=== PATIENT | female | born 1975 | race Two or more races ===

== ENCOUNTER → 2016-08-16 | Outpatient (CLI) | payer BC ==
[2016-08-16 20:44] LABS: Basophils % (A) 0 %; CH 23.1; CHCM 30.4; Eosinophils # (A) 0.1 k/uL (0-0.7); Eosinophils % (A) 2 %; HCT 37.4 % (34.0-46.0); HDW 2.64; HGB 11.3 gm/dL (11.4-16.0); Hypochromasia Moderate; Luc # (Auto) 0.16; Luc % (Auto) 2; Lymphocytes # (A) 2.4 k/uL (1.0-4.8); Lymphocytes % (A) 30 %; MCHC 30.2 g/dL (31.0-37.0); MCV 76.3 fL (80.0-100.0); Mean Platelet Volume 8.7; Microcytosis Slight; Monocytes # (A) 0.4 k/uL (0-1.0); Monocytes % (A) 5 %; Neutrophils # (A) 4.8 k/uL (1.3-7.7); Neutrophils % (A) 61 %; RDW 15.2 % (11.5-15.5); WBC 7.9 k/uL (3.8-10.6); WBC (Perox) 8.25
[2016-08-16 20:46] LABS: ALT 34 U/L (9-52); AST 22 U/L (14-36); Alkaline Phosphatase 76 U/L (38-126); Anion Gap 12 mmol/L; Blood Urea Nitrogen 11 mg/dL (7-17); Calcium 9.5 mg/dL (8.4-10.2); Carbon Dioxide 25 mmol/L (22-30); Chloride 101 mmol/L (98-107); Cholesterol 144 mg/dL (<200); Glucose 123 mg/dL (74-99); HDL Cholesterol 50 mg/dL (40-60); Non-African American GFR(MDRD) >60 (>60 ml/min/1.73 sqM); Potassium 3.3 mmol/L (3.5-5.1); Sodium 138 mmol/L (137-145); Total Bilirubin 0.3 mg/dL (0.2-1.3); Total Protein 7.7 g/dL (6.3-8.2); Triglycerides 82 mg/dL (<150)
== END ==
LOC: MMGSC 16:43
PROVIDERS: ATTEND Family Medicine
DX: I10 Essential (primary) hypertension (principal)
CPT/HCPCS: 36415; 80053; 80061; 84439; 84443; 85025

== ENCOUNTER → 2016-11-06 | Outpatient (CLI) | payer BC | END | disposition home or self-care (01) | LOC: LABWHC1 11:36 | PROVIDERS: ATTEND Internal Medicine Endocrinology, Diabetes & Metabolism | DX: R23.2 Flushing (principal); E03.8 Other specified hypothyroidism; I15.9 Secondary hypertension, unspecified | CPT/HCPCS: 36415; 82088; 83001; 84244; 84439; 84443 ==

== ENCOUNTER 2016-11-19 21:08 | Emergency (ER) | payer BC ==
[2016-11-19 21:18] VITALS: BP 130/66; PULSE 80; RESP 18; TEMP 98.3
--- NOTE | 2016-11-19 21:37 | ED ---
Lower Extremity Injury HPI - General Chief Complaint: Extremity Injury, Lower Stated Complaint: R Foot Ankle Injury Time Seen by Provider: 11/19/16 21:18 Source: patient, RN notes reviewed Mode of arrival: wheelchair Limitations: no limitations - History of Present Illness Initial Comments: 41-year-old female presents emergency Department chief complaint right foot injury. Patient states that she stepped on a kids block toy and twisted her foot. Patient complains of of right mid to lateral foot pain. Patient had no prior injuries. She states is swollen and very painful when she ambulates. - Related Data Home Medications Medication Instructions Recorded Confirmed Ferrous Sulfate [Feosol] 325 mg PO DAILY 11/19/16 11/19/16 Losartan/Hydrochlorothiazide 1 tab PO DAILY 11/19/16 11/19/16 [Losartan-Hctz 100-12.5 mg Tab] Montelukast [Singulair] 10 mg PO HS 11/19/16 11/19/16 Omeprazole Magnesium [Prilosec OTC] 20 mg PO DAILY 11/19/16 11/19/16 Potassium 99 mg PO DAILY 11/19/16 11/19/16 Allergies Allergy/AdvReac Type Severity Reaction Status Date / Time sulfamethoxazole Allergy Anaphylaxis Verified 11/19/16 21:17 [From Bactrim] trimethoprim [From Bactrim] Allergy Anaphylaxis Verified 11/19/16 21:17 Review of Systems ROS Statement: Those systems with pertinent positive or pertinent negative responses have been documented in the HPI. ROS Other: All systems not noted in ROS Statement are negative. Past Medical History Past Medical History: GERD/Reflux, Hypertension, Thyroid Disorder History of Any Multi-Drug Resistant Organisms: None Reported Past Surgical History: Cholecystectomy, Tubal Ligation Additional Past Surgical History / Comment(s): Breast implants. Tubal reveresal Past Anesthesia/Blood Transfusion Reactions: No Reported Reaction Past Psychological History: No Psychological Hx Reported Smoking Status: Never smoker Past Alcohol Use History: None Reported Past Drug Use History: None Reported - Past Family History Father Family Medical History: Hypertension General Exam Limitations: no limitations General appearance: alert, in no apparent distress Respiratory exam: Present: normal lung sounds bilaterally. Absent: respiratory distress, wheezes, rales, rhonchi, stridor Cardiovascular Exam: Present: regular rate, normal rhythm, normal heart sounds. Absent: systolic murmur, diastolic murmur, rubs, gallop, clicks Extremities exam: Present: other (Right foot there is tenderness to lateral portion of the foot with moderate swelling no ecchymosis neurovascular intact) Course Vital Signs 11/19/16 21:16 Temperature 98.3 F Pulse Rate 80 Respiratory 18 Rate Blood Pressure 130/66 O2 Sat by Pulse 100 Oximetry Procedures - Orthopedic Splinting/Casting Injury #1 Side: right Lower Extremity Injury Location: foot Lower Extremity Immobilizer: posterior splint (Short leg neurovascular intact before and after procedure) Medical Decision Making - Medical Decision Making 41-year-old female presented emergency from for right foot injury. Patient is a fracture through the fifth metatarsal. Patient will be splinted follow-up with orthopedics. Disposition Clinical Impression: Fracture of fifth metatarsal bone Disposition: HOME SELF-CARE Condition: Stable Instructions: Foot Fracture in Adults (ED) Additional Instructions: Please return to the Emergency Department if symptoms worsen or any other concerns. Referrals: Arnold Hawley MD [Primary Care Provider] - 1-2 days Jose Liu DO [Doctor of Osteopathic Medicine] - 1-2 days
--- NOTE | 2016-11-19 21:42 | XR ---
EXAMINATION TYPE: XR foot complete RT DATE OF EXAM: 11/19/2016 CLINICAL HISTORY: pain TECHNIQUE: Frontal, lateral and oblique images of the right foot are obtained. COMPARISON: None. FINDINGS: Virtually nondisplaced fracture at the base of the fifth metatarsal. The joint spaces appe ar within normal limits. The overlying soft tissue appears unremarkable. IMPRESSION: Virtually nondisplaced fracture at the base of the fifth metatarsal. ICD 10 closed FRACTURE, INITIAL EVALUATION
[2016-11-19] MEDS ORDERED: IBUPROFEN 600 MG TAB PO STA (21:44)
== END 2016-11-19 21:58 | disposition home or self-care (01) ==
LOC: EC 21:08
DX: S92.354A Nondisplaced fracture of fifth metatarsal bone, right foot, initial encounter for closed fracture (principal); I10 Essential (primary) hypertension; K21.9 Gastro-esophageal reflux disease without esophagitis; Z88.2 Allergy status to sulfonamides; Z79.899 Other long term (current) drug therapy; X50.1XXA Overexertion from prolonged static or awkward postures, initial encounter
CPT/HCPCS: 29515; 99283

== ENCOUNTER → 2017-01-13 | Outpatient (CLI) | payer BC ==
[2017-01-13 16:47] LABS: Anion Gap 11 mmol/L; Blood Urea Nitrogen 12 mg/dL (7-17); Calcium 9.4 mg/dL (8.4-10.2); Carbon Dioxide 27 mmol/L (22-30); Chloride 101 mmol/L (98-107); Glucose 103 mg/dL (74-99); Non-African American GFR(MDRD) >60 (>60 ml/min/1.73 sqM); Potassium 3.7 mmol/L (3.5-5.1); Sodium 139 mmol/L (137-145)
--- NOTE | 2017-01-15 08:22 | MM ---
Reason for exam: screening (asymptomatic). Last mammogram was performed 1 year and 9 months ago. History: Saline implants in both breasts, 2009. Physical Findings: A clinical breast exam by your physician is recommended on an annual basis and results should be correlated with mammographic findings. MG Screening Mammo Implant/CAD Bilateral CC, MLO, and ID view(s) were taken. Prior study comparison: March 31, 2015, bilateral MG screening mammo implant/CAD. February 11, 2012, CAD bilateral diagnostic mammogram. The breast tissue is heterogeneously dense. This may lower the sensitivity of mammography. Bilateral saline implants. No significant changes when compared with prior studies. ASSESSMENT: Negative, BI-RAD 1 RECOMMENDATION: Routine screening mammogram of both breasts in 1 year.
== END | disposition home or self-care (01) ==
LOC: RADMAMWWP 15:36
PROVIDERS: ATTEND Internal Medicine Interventional Cardiology
DX: Z12.31 Encounter for screening mammogram for malignant neoplasm of breast (principal); E87.6 Hypokalemia; Z98.82 Breast implant status
CPT/HCPCS: 80048; 36415; G0202

== ENCOUNTER → 2018-01-15 | Outpatient (CLI) | payer OTHER ==
[2018-01-15 13:14] LABS: Basophils % (A) 0 %; Eosinophils # (A) 0.1 k/uL (0-0.7); Eosinophils % (A) 1 %; HCT 41.9 % (34.0-46.0); HGB 13.8 gm/dL (11.4-16.0); Lymphocytes # (A) 1.7 k/uL (1.0-4.8); Lymphocytes % (A) 21 %; MCH 27.7 pg (25.0-35.0); MCV 84.2 fL (80.0-100.0); Mean Platelet Volume 7.3; Monocytes # (A) 0.4 k/uL (0-1.0); Monocytes % (A) 4 %; Neutrophils # (A) 5.8 k/uL (1.3-7.7); Neutrophils % (A) 72 %; Platelet Count 266 k/uL (150-450); RBC 4.98 m/uL (3.80-5.40); RDW 13.7 % (11.5-15.5); WBC 8.1 k/uL (3.8-10.6)
== END | disposition home or self-care (01) ==
LOC: LABPAT 12:17
PROVIDERS: ATTEND Obstetrics & Gynecology
DX: Z01.818 Encounter for other preprocedural examination (principal); Z01.812 Encounter for preprocedural laboratory examination; I10 Essential (primary) hypertension; N92.0 Excessive and frequent menstruation with regular cycle; N84.0 Polyp of corpus uteri
CPT/HCPCS: 36415; 85025; 93005

== ENCOUNTER 2018-01-19 09:03 | Day surgery (SDC) | payer OTHER ==
--- NOTE | 2018-01-15 14:51 | HP ---
HISTORY AND PHYSICAL This is a 42-year-old female, 4, para 3-1-0-4, who presents with a history of abnormal uterine bleeding. Endometrial biopsy in the office reveals benign tissue with fragments of a benign polyp. Recent FSH level of 5.3, hemoglobin 13.7, thyroid function studies within normal limits. After thorough discussion, patient presents for hysteroscopy, polypectomy, and NovaSure endometrial ablation. All risks, benefits, and alternatives of the surgery have been discussed in detail. Second opinion is offered and declined. REVIEW OF SYSTEMS: Otherwise negative. PAST MEDICAL HISTORY: Significant for history of anemia, chlamydia, benign heart murmur, hypertension, hypothyroidism, and thyroid disease. PAST SURGICAL HISTORY: Breast augmentation bilaterally 2009, section in 2014, cholecystectomy in 1990, tubal ligation 1999, with tubal reversal attempted in 2010. CURRENT MEDICATIONS: 1. Iron 325 mg tablets when on menses. 2. Losartan hydrochlorothiazide 50/12.5 mg tablets once daily. 3. Omeprazole 20 mg before meals. 4. Singular 10 mg once daily in the evening. ALLERGIES: Include ASPIRIN, to which she reports difficulty breathing, BACTRIM, and BACTRIM DS to which she reports hives, swelling and shortness of breath, KEFLEX to which she reports hives and a rash, LATEX to which she reports a local reaction, SULFA and SULFONAMIDE DRUGS to which she reports a rash, hives and difficulty breathing. FAMILY HISTORY: Significant for hypertension in her father, diabetes in a grandmother. REPRODUCTIVE HISTORY: Three vaginal deliveries, 1 section. Fimbriectomy with attempted tubal ligation reversal, unsuccessful. SOCIAL HISTORY: Patient does drink alcoholic beverages 1-4 per week, she is , she currently smokes 1 pack per day tobacco. She denies illicit drug use. PHYSICAL EXAM: This is a pleasant white female who is 4 foot 11 inches, 125 pounds, BMI 25, blood pressure 112/80. HEENT exam reveals good dentition, no thyromegaly, no cervical lymphadenopathy. Chest is clear to auscultation in all urrutia anteriorly and posteriorly. Cardiac exam reveals regular rate and rhythm with no murmur, click, or rub. The breasts are bilaterally symmetric to inspection, implants are well seated and symmetric, no obvious skin changes, nipple discharge or adenopathy. Abdomen is soft and nontender, no obvious organosplenomegaly. Extremities reveal good range of motion, good peripheral pulses, no edema. On pelvic exam, external genitalia is well estrogenized and atraumatic. Cervix is multiparous. Uterus is anteverted, anteflexed, mobile, smooth, small, midline. Adnexa are negative bilaterally to palpation. Rectal exam reveals good sphincter tone, negative stool. IMPRESSION: Menorrhagia, endometrial polyp noted per endometrial biopsy. Patient choosing NovaSure endometrial ablation. PLAN: We will proceed with hysteroscopy, polypectomy, and NovaSure endometrial ablation under general anesthetic at [facility]. The risks, benefits, and alternatives of this procedure have been discussed in detail. Second opinion is offered and declined. Patient understands that she will not be able to achieve after this procedure; however, it is not formal contraception. She has had previous bilateral fimbriectomies. All questions answered, patient aware of our discussion. Please also note that the ACOG pamphlet on this procedure have been given to the patient and reviewed thoroughly. MMODL / IJN: [id number] /
[2018-01-16 10:14] VITALS: BMI 25.4
[~2018-01-19 09:03] MED LIST: CLINDAMYCIN 900 MG in DEXTROSE 5% IN WATER 50 ML IVPB ONE; DEXAMETHASONE SOD PHOSPHATE 10 MG/ML 1 ML VIAL IV ONE; GENTAMICIN 280 MG in SODIUM CHLORIDE 0.9% 100 ML IVPB ONE; LACTATED RINGERS 1,000 ML IV SCH; MIDAZOLAM 2 MG/2 ML VIAL IV PRN; ONDANSETRON 4 MG/2 ML VIAL IVP ONE; SCOPOLAMINE 1.5MG/72HR PATCH TRANSDERM ONE; ceFAZolin IN SWFI 2 GM/20 ML SYRINGE IVP ONE
[2018-01-19] MEDS ORDERED: LIDOCAINE 1% 20 ML VIAL (10MG/ML) FOR IV START INTRADERMA ONE (09:45)
[2018-01-19 09:48] VITALS: TEMP 98.3
[2018-01-19] MEDS ORDERED: KETOROLAC 30 MG/ML 1 ML VIAL ONE (11:32)
[2018-01-19] MEDS ORDERED: fentaNYL (PF) 50 MCG/ML 2 ML AMP ONE (11:32)
[2018-01-19] MEDS ORDERED: MIDAZOLAM 2 MG/2 ML VIAL ONE (11:32)
[2018-01-19] MEDS ORDERED: PROPOFOL 10 MG/ML 20 ML VIAL IV ONE (11:32)
[2018-01-19] MEDS ORDERED: LIDOCAINE 1% INJ 10MG/ML (20 ML MDV) ONE (11:32)
--- NOTE | 2018-01-19 11:57 | P.OP ---
Date of Procedure: 01/19/18 Preoperative Diagnosis: Menorrhagia, endometrial polyps Postoperative Diagnosis: Same Procedure(s) Performed: Hysteroscopy, polypectomy, NovaSure endometrial ablation Anesthesia: BABY Surgeon: Theodora Love Estimated Blood Loss (ml): 5 IV fluids (ml): 500 Urine output (ml): 300 Description of Procedure: Patient is brought to the [facility] and suite where a general anesthetic is administered without difficulty. She's placed in the dorsal lithotomy position. The appropriate timeout is performed to assure proper patient and procedural identification. Antibiotics are not deemed necessary. Urine hCG is negative. The cervix, vagina, perineal bodies are all prepped and draped in usual sterile fashion. Examination under anesthesia reveals a anteverted uterus , negative adnexa bilaterally. Bladder is drained with a latex free catheter for 300 mL of urine. Weighted speculum was placed into the vagina. Anterior lip of the cervix is grasped with a double-tooth tenaculum. Cervix sounds to a depth of 10.5 cm in the anteverted position. Cervix is gently and systematically dilated using Hanks dilators. Hysteroscope was introduced and saline is infused. There are multiple endometrial polyps noted. Hysteroscope was removed. All small sharp curette is used and multiple polyps are removed and sent to pathology for evaluation. When this is completed, the NovaSure wand is placed in the intrauterine cavity. Uterine length of 6.5 cm, width of 4.3 cm is calibrated. The machine is properly enabled. For 102 seconds with a power of 154 W. the procedure is carried out. When it is completed the wand is reduced and removed. Hysteroscope was once again placed and the cavity is noted to be uniformly blanched. No additional polyps or defects are noted. All sponge needle and enhancement counts are correct at the end of this procedure. Patient is given Toradol prior to leaving the operative suite. She is brought back to the recovery room in very good condition with stable vital signs including a blood pressure of 125/78, pulse 71. She will follow-up in the office with me in 2 weeks.
[2018-01-19 12:18] VITALS: RESP 16
[2018-01-19] MEDS ORDERED: HYDROmorphone 1 MG/ML 1 ML SYRINGE IVP ONE (12:33)
[2018-01-19] MEDS ORDERED: HYDROmorphone 0.5 MG/0.5 ML SYRINGE IVP ONE (12:38)
[2018-01-19 13:31] VITALS: BP 130/84; PULSE 86
== END 2018-01-19 13:54 | disposition home or self-care (01) ==
LOC: OR 09:03
PROVIDERS: ATTEND Obstetrics & Gynecology
DX: N84.0 Polyp of corpus uteri (principal); I10 Essential (primary) hypertension; E03.9 Hypothyroidism, unspecified; K21.9 Gastro-esophageal reflux disease without esophagitis; F17.210 Nicotine dependence, cigarettes, uncomplicated; Z98.51 Tubal ligation status; Z88.6 Allergy status to analgesic agent; Z88.2 Allergy status to sulfonamides; Z82.49 Family history of ischemic heart disease and other diseases of the circulatory system; Z91.040 Latex allergy status; Z79.899 Other long term (current) drug therapy; Z86.2 Personal history of diseases of the blood and blood-forming organs and certain disorders involving the immune mechanism
CPT/HCPCS: 81025; 88305; 58563; J2250; J1100; J2405; J2001; J3010; J1885; J1170 ×2; J2704

== ENCOUNTER → 2018-08-21 | Outpatient (CLI) | payer OTHER ==
--- NOTE | 2018-08-25 10:16 | MM ---
Reason for exam: screening (asymptomatic). Last mammogram was performed 1 year and 7 months ago. History: Saline implants in both breasts, 2010. Physical Findings: A clinical breast exam by your physician is recommended on an annual basis and results should be correlated with mammographic findings. MG Screening Mammo Implant/CAD Bilateral CC, MLO, and ID view(s) were taken. Prior study comparison: January 13, 2017, bilateral MG screening mammo implant/CAD. March 31, 2015, bilateral MG screening mammo implant/CAD. The breast tissue is heterogeneously dense. This may lower the sensitivity of mammography. No suspicious abnormality. Bilateral retropectoral saline implants. ASSESSMENT: Negative, BI-RAD 1 RECOMMENDATION: Routine screening mammogram of both breasts in 1 year. Manage on a clinical basis with regard to intermittent left breast pain. If continuous and focal, diagnostic exam would be recommended.
== END | disposition home or self-care (01) ==
LOC: RADMAMWWP 13:37
PROVIDERS: ATTEND Family Medicine
DX: Z12.31 Encounter for screening mammogram for malignant neoplasm of breast (principal)
CPT/HCPCS: 77067

== ENCOUNTER → 2019-11-22 | Outpatient (CLI) | payer OTHER ==
--- NOTE | 2019-11-22 14:57 | MM ---
Reason for exam: clinical finding. Last mammogram was performed 1 year and 3 months ago. History: Saline implants in both breasts, 2010. Took hormonal contraceptives for 15 years. Indicated problem(s): pain in the left breast. Physical Findings: Nurse did not find any significant physical abnormalities on exam. MG 3D Diag Mammo Imp W/Cad TOMAS Bilateral CC, MLO, and ID view(s) were taken. Prior study comparison: August 21, 2018, bilateral MG screening mammo implant/CAD. January 13, 2017, bilateral MG screening mammo implant/CAD. The breast tissue is heterogeneously dense. This may lower the sensitivity of mammography. Bilateral retropectoral saline implants. Right subareolar focal asymmetry disperses on spot 3D. Left lateral posterior asymmetric density questionably persists on spot 3D CC. No MLO correlate seen. These results were verbally communicated with the patient and result sheet given to the patient on 11/22/19. ASSESSMENT: Incomplete: need additional imaging evaluation, BI-RAD 0 RECOMMENDATION: Ultrasound of the left breast.
--- NOTE | 2019-11-22 14:58 | USB ---
Reason for exam: additional evaluation requested from abnormal screening. History: Saline implants in both breasts, 2010. Took hormonal contraceptives for 15 years. US Breast LT Left complete breast ultrasound includes all four quadrants, the retroareolar region and axilla. Finding demonstrates no cystic or solid lesion seen. Precautionary 6 month follow up mammogram recommended. These results were verbally communicated with the patient and result sheet given to the patient on 11/22/19. ASSESSMENT: Probably benign, BI-RAD 3 RECOMMENDATION: Follow-up diagnostic mammogram of the left breast in 6 months.
== END | disposition home or self-care (01) ==
LOC: RADMAMWWP 12:41
PROVIDERS: ATTEND Obstetrics & Gynecology
DX: N64.4 Mastodynia (principal); N63.25 Unspecified lump in the left breast, overlapping quadrants
CPT/HCPCS: 77062; 77066

== ENCOUNTER → 2020-03-31 | Outpatient (CLI) | payer OTHER ==
[2020-03-31 07:56] LABS: Basophils # (A) 0.1 k/uL (0-0.2); Basophils % (A) 1 %; Eosinophils # (A) 0.3 k/uL (0-0.7); Eosinophils % (A) 4 %; HCT 40.5 % (34.0-46.0); HGB 13.8 gm/dL (11.4-16.0); Lymphocytes % (A) 28 %; MCH 29.4 pg (25.0-35.0); MCHC 34.1 g/dL (31.0-37.0); MCV 86.3 fL (80.0-100.0); Mean Platelet Volume 7.8; Monocytes # (A) 0.3 k/uL (0-1.0); Monocytes % (A) 4 %; Neutrophils # (A) 4.3 k/uL (1.3-7.7); Neutrophils % (A) 61 %; Platelet Count 251 k/uL (150-450); RDW 12.6 % (11.5-15.5)
[2020-03-31 09:49] LABS: Erythrocyte Sedimentation Rate 11 mm/hr (0-20)
[2020-03-31 11:29] LABS: % Iron Saturation 27.27 (12.00-45.00); ALT 24 U/L (8-44); AST 22 U/L (13-35); African American GFR (CKD) 120.4 (60.0-200.0); Albumin/Globulin Ratio 1.96 (1.60-3.17); Alkaline Phosphatase 58 U/L (41-126); BUN/Creat Ratio 24.29 Ratio (12.00-20.00); C Reactive Protein <0.4 mg/dL (0.0-0.8); Calcium 9.2 mg/dL (8.7-10.3); Carbon Dioxide 30.8 mmol/L (21.6-31.8); Chloride 103 mmol/L (96-109); Chol/HDL Ratio 3.48; Cholesterol 174 mg/dL (0-200); Globulin 2.3 g/dL (1.6-3.3); Glucose 88 mg/dL (70-110); Iron 72 ug/dL (50-170); LDL Cholesterol,Calculated 90.2 mg/dL (0.0-131.0); Magnesium 1.5 mg/dL (1.5-2.4); Non-African American GFR(CKD) 103.9 (60.0-200.0); Potassium 3.2 mmol/L (3.5-5.5); Rheumatoid Factor, Qnt <4 IU/mL (0-15); Sodium 141 mmol/L (135-145); Total Bilirubin 0.4 mg/dL (0.3-1.2); Total Iron Binding Capacity 264 ug/dL (228-460); Total Protein 6.8 g/dL (6.2-8.2); Uric Acid 5.5 mg/dL (2.9-7.7)
[2020-03-31 11:35] LABS: Ferritin 34.7 ng/mL (10.0-291.0)
[2020-03-31 13:11] LABS: Hemoglobin A1C 5.7 % (4.0-6.0)
== END | disposition home or self-care (01) ==
LOC: LABWHC1 07:23
PROVIDERS: ATTEND Family Medicine
DX: Z00.00 Encounter for general adult medical examination without abnormal findings (principal); G25.81 Restless legs syndrome; M25.50 Pain in unspecified joint
CPT/HCPCS: 36415; 80053; 80061; 82306; 82607; 82728; 83036; 83540; 83550; 83735; 84443; 84550; 85025; 85652; 86038; 86140; 86431

== ENCOUNTER → 2020-11-10 | Outpatient (CLI) | payer OTHER ==
--- NOTE | 2020-11-13 08:46 | MM ---
Reason for exam: additional evaluation requested from prior study. Last mammogram was performed 1 year ago. History: Saline implants in both breasts, 2010. Took hormonal contraceptives for 15 years. Physical Findings: Nurse did not find any significant physical abnormalities on exam. MG Diag Mamm Implant LT w CAD CC, MLO, and ID view(s) were taken of the left breast. Prior study comparison: November 22, 2019, bilateral MG 3d diag mammo imp w/cad TOMAS. August 21, 2018, bilateral MG screening mammo implant/CAD. The breast tissue is heterogeneously dense. This may lower the sensitivity of mammography. There is no discrete abnormality including area of concern. Left implant is intact. No significant new findings when compared with previous films. These results were verbally communicated with the patient and result sheet given to the patient on 11/10/20. ASSESSMENT: Benign, BI-RAD 2 RECOMMENDATION: Routine screening mammogram of both breasts in 1 year. Manage patient on a clinical basis.
== END | disposition home or self-care (01) ==
LOC: RADMAMWWP 15:01
PROVIDERS: ATTEND Obstetrics & Gynecology
DX: R92.2 Inconclusive mammogram (principal); Z79.3 Long term (current) use of hormonal contraceptives; Z98.82 Breast implant status
CPT/HCPCS: 77065

== ENCOUNTER → 2020-12-01 | Outpatient (CLI) | payer OTHER ==
--- NOTE | 2020-12-01 11:17 | US ---
EXAMINATION TYPE: US thyroid st tissue head/neck DATE OF EXAM: 12/01/2020 COMPARISON: NONE CLINICAL HISTORY: R59.0 Localized enlarged lymph nodes. Left supraclavicular mass at medial neck note d x 6 months; recent bilateral ear fluid was commented on by patient. GLAND SIZE: Right Lobe: 3.3 x 1.1 x 1.2 cm Overall Parenchyma: homogenous Left Lobe: 3.7 x 0.9 x 0.6 cm Overall Parenchyma: homogeneous Isthmus Thickness: 0.1 cm NODULES RIGHT: # of nodules measured on right: 0 LEFT: # of nodules measured on left: 0 ISTHMUS: # of nodules measured in the isthmus: 0 Bilateral neck scanned: superior to right thyroid lymph node is seen = 0.7 x 0.6 x 0.2cm and inferior to right thyroid another lymph node is seen = 0.8 x 0.4 x 0.3cm. Superior to left thyroid a lymph no de is imaged = 0.9 x 0.7 x 0.4cm. US at left supraclavicular palpable: lymph node is seen = 1.2 x 1.0 x 0.4cm. Cortex appears somewhat prominent. Additional workup is recommended. IMPRESSION: 1. Normal thyroid. 2. Scattered lymphadenopathy bilaterally. Cortex on the left supraclavicular lymph node at the palpab le abnormality appears somewhat thickened. Contrast CT neck recommended.
== END | disposition home or self-care (01) ==
LOC: RADUSWWP 08:45
PROVIDERS: ATTEND Family Medicine
DX: R59.0 Localized enlarged lymph nodes (principal)
CPT/HCPCS: 76536

== ENCOUNTER → 2020-12-05 | Outpatient (CLI) | payer OTHER ==
--- NOTE | 2020-12-06 05:51 | CT ---
EXAMINATION TYPE: CT soft tissue neck w con DATE OF EXAM: 12/05/2020 HISTORY: Supraclavicular lymphadenopathy. LT side marked with BB. C/of chin swelling COMPARISON: Thyroid ultrasound [address] DLP: 409 mGycm. Automated Exposure Control for Dose Reduction was Utilized. TECHNIQUE: CT scan of the neck is performed with IV Contrast, patient injected with 100 mL of Isovue 300, axial images are obtained, coronal and sagittal reformatted images are reviewed. FINDINGS: Airway: No gross abnormality seen. Parotid/submandibular glands: No gross abnormality seen. Carotid/Vascular Structures: No significant abnormality seen. Osseous Structures: Mild disc space narrowing and spurring C5-C6 level. Other: Prominent but subcentimeter lymph nodes throughout the neck bilaterally including at level of the palpable abnormality axial image 40 marked by metallic BB posterior cervical triangle at level of the vocal cord there is 9 x 5 mm lymph node identified. No definitive abnormal greater than 1 cm nec k lymph nodes are seen bilaterally. The parapharyngeal fat spaces are maintained bilaterally. Some Nasal septal deviation is present. IMPRESSION: Prominent but subcentimeter lymph nodes throughout the neck bilaterally are confirmed. No abnormal greater than 1 cm lymph nodes identified. No concerning masses appreciated.
== END | disposition home or self-care (01) ==
LOC: RADCTMAIN 18:51
PROVIDERS: ATTEND Family Medicine
DX: R59.0 Localized enlarged lymph nodes (principal)
CPT/HCPCS: 70491; Q9967

== ENCOUNTER → 2020-12-14 | Outpatient (CLI) | payer OTHER ==
--- NOTE | 2020-12-14 11:39 | P.CONS ---
History of Present Illness - Reason for Consult Consult date: 12/14/20 - Chief Complaint Neck and left arm pain - History of Present Illness This is a 45-year-old lady with history of neck pain with radiation to the left arm and numbness in the medial 3 fingers on the left side. The patient had this pain for a few years now. 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 She denies any bowel or bladder dysfunction or any weakness in the upper or lower extremities. She is going to start physical therapy next week. She has been taking ibuprofen for her pain. The pain wakes her up at night and affects her quality of sleeping. Past Medical History Past Medical History: GERD/Reflux, Hypertension, Skin Disorder Additional Past Medical History / Comment(s): SEASONAL ALLERGIES. BLE-PSORIASIS History of Any Multi-Drug Resistant Organisms: None Reported Past Surgical History: Breast Surgery, Cholecystectomy, Tubal Ligation, Uterine Ablation Additional Past Surgical History / Comment(s): Breast implants. Tubal REVERSAL, Past Anesthesia/Blood Transfusion Reactions: No Reported Reaction Past Psychological History: No Psychological Hx Reported Smoking Status: Former smoker Past Alcohol Use History: None Reported Additional Past Alcohol Use History / Comment(s): quit smoking 10-15 yrs ago; smoked about 1ppd previously Past Drug Use History: None Reported - Past Family History Father Family Medical History: Hypertension Medications and Allergies Home Medications Medication Instructions Recorded Confirmed Type Losartan/Hydrochlorothiazide 1 tab PO DAILY 11/19/16 12/14/20 History [Losartan-Hctz 100-12.5 mg Tab] Montelukast [Singulair] 10 mg PO HS 11/19/16 12/14/20 History Omeprazole Magnesium [Prilosec OTC] 20 mg PO DAILY 11/19/16 12/14/20 History Halobetasol Propionate [Ultravate 1 applic TOPICAL DAILY 12/13/20 12/14/20 History 0.05%] Ibuprofen [Motrin] 600 mg PO Q8HR PRN 12/13/20 12/14/20 History Loratadine [Claritin] 10 mg PO DAILY 12/13/20 12/14/20 History amLODIPine [Norvasc] 10 mg PO DAILY 12/13/20 12/14/20 History Allergies Allergy/AdvReac Type Severity Reaction Status Date / Time Latex, Natural Rubber Allergy Itching Verified 12/14/20 11:09 sulfamethoxazole Allergy Anaphylaxis Verified 12/14/20 11:09 [From Bactrim] trimethoprim [From Bactrim] Allergy Anaphylaxis Verified 12/14/20 11:09 Physical Exam Vitals: Intake and Output 12/13/20 12/14/20 12/14/20 22:59 06:59 14:59 Other: Weight 56.699 kg - Constitutional General appearance: average body habitus - Neurologic Neuro exam of the upper extremities showed normal and symmetrical muscle strength and normal and symmetrical deep tendon reflexes with mildly decreased left biceps reflex compared to the right side. Past of tenderness in the cervical paravertebral musculature on the left side Neurologic: CNII-XII intact - Psychiatric Psychiatric: A&O x's 3, appropriate affect, intact judgment & insight Results Results: Cervical spine MRI showed severe neural foraminal stenosis at the C5 6 Assessment and Plan Plan: This is a 45-year-old lady with history of left cervical radiculopathy due to neural foraminal stenosis at the C5 6 level. The patient may benefit from getting cervical epidural steroid injection at the C7-T1 level in the left paramedian approach. I gave the patient the option of doing this injection either before the physical therapy or after which she prefers to go ahead with it before physical therapy. The patient will hold her ibuprofen for 24 hours before the procedure and she can use Tylenol for her pain and stated. I thank you for the referral
[2020-12-14 11:40] VITALS: BP 132/95; PULSE 80; RESP 18; TEMP 97.6
== END ==
LOC: PNWHC3 11:02
PROVIDERS: ATTEND Anesthesiology
DX: M54.12 Radiculopathy, cervical region (principal); M48.02 Spinal stenosis, cervical region; I10 Essential (primary) hypertension; K21.9 Gastro-esophageal reflux disease without esophagitis; Z87.891 Personal history of nicotine dependence; Z79.899 Other long term (current) drug therapy; Z88.2 Allergy status to sulfonamides; Z91.040 Latex allergy status
CPT/HCPCS: 99211

== ENCOUNTER 2021-01-02 10:59 | Day surgery (SDC) | payer OTHER ==
[2021-01-02 11:24] VITALS: RESP 16; TEMP 97.9
[2021-01-02] MEDS ORDERED: LIDOCAINE 1% (10MG/ML) FOR IV START INTRADERMA ONE (11:31)
[2021-01-02] MEDS ORDERED: LACTATED RINGERS 1,000 ML IV ONE (11:31)
[2021-01-02] MEDS ORDERED: fentaNYL (PF) 50 MCG/ML 2 ML AMP ONE (12:09)
[2021-01-02] MEDS ORDERED: IOPAMIDOL M200 10 ML VIAL ONE (12:09)
[2021-01-02] MEDS ORDERED: MIDAZOLAM 2 MG/2 ML VIAL ONE (12:09)
[2021-01-02] MEDS ORDERED: methylPREDNISolone ACETATE 40 MG/ML 1 ML VIAL ONE (12:09)
[2021-01-02] MEDS ORDERED: IV FLUID CONTINUATION 1,000 ML IV ONE (12:26)
[2021-01-02 12:29] VITALS: PULSE 74
[2021-01-02] MEDS ORDERED: LACTATED RINGERS 1,000 ML IV SCH (12:30)
--- NOTE | 2021-01-02 12:30 | P.PCN ---
Date of Procedure: 01/02/21 Description of Procedure: Pre- and Post-operative Diagnosis: Cervical radiculopathy Procedure: C7-T1 inter-Laminar Cervical Epidural Steroid Injection under biplanar fluoroscopy# 1/3 Surgeon: Ashley Zhu Anesthesia: Local: 1% Lidocaine, IV sedation :Versed 1 milligram, and fentanyl 50 g. Complications: None. Estimated blood loss: None Specimens removed: None Fluoroscopic image: saved to electronic medical records. Indications for Procedure: The patient has been suffering from neck pain and pain radiating to the upper extremity . Inadequate pain control with pharmacologic regimen. An inter-laminar approach cervical epidural steroid injection was scheduled for the patient. Procedure and Findings: The patient was seen and examined in the holding area. The written informed consent was obtained after explaining the risks, benefits, alternatives of the procedure to the patient. The patient was brought to the procedure room and was placed in the prone position on the operating table. A pillow was placed under the upper chest. Standard anesthesia monitoring was done through out the procedure. Timeout was completed. The skin preparation was done with ChloraPrep 1 and draping was done in usual sterile fashion. Sterile technique was observed throughout the procedure. Under fluoroscopic guidance, the C7-T1 inter-laminar space was identified. 3 ml of 1% Lidocaine was injected with a 25 gauge needle to achieve adequate local anesthesia of the skin and subcutaneous tissue. A 20 gauge, 3.5 inch Tuohy type epidural needle was placed and gradually advanced up to the epidural space using loss of resistance technique and fluoroscopic guidance. Lateral, oblique fluoroscopic views confirm the needle position. No paresthesia was noted. A negative aspiration was confirmed and then 1 ml of Isovue-200 was injected. A good dye spread was seen in the epidural space and it was negative for any intrathecal, intraneural or intravascular spread. A total of 6 ml solution containing 80 mg Depo-Medrol, and 5 ml preservative-free Normal Saline was injected slowly with intermittent aspiration. The needle was removed intact, area was cleaned and bandage was applied. Disposition : The patient tolerated the procedure very well. The patient was transferred to the recovery room and remained stable until discharged home. The patient was given detailed discharge instructions for bleeding, infection, increased pain at the injection site, and was advised to seek immediate medical attention should significant side effects develop. The patient will be followed up with our Pain Clinic within 4 weeks for follow-up visit.
[2021-01-02 12:47] VITALS: BP 124/86
--- NOTE | 2021-01-02 14:12 | FL ---
Fluoroscopy HISTORY: Pain 12 seconds fluoroscopy time supplied to the referring clinician. 4 intraoperative C-arm images docum ent the procedure. See dictated report from anesthesia.
== END 2021-01-02 13:00 | disposition home or self-care (01) ==
LOC: ORPAIN 10:59
DX: M54.12 Radiculopathy, cervical region (principal); R51.9 Headache, unspecified; I10 Essential (primary) hypertension; K21.9 Gastro-esophageal reflux disease without esophagitis; Z79.899 Other long term (current) drug therapy; Z98.891 History of uterine scar from previous surgery; Z98.51 Tubal ligation status; Z98.890 Other specified postprocedural states; Z88.2 Allergy status to sulfonamides; Z91.040 Latex allergy status
CPT/HCPCS: 62321; J2250; J1030; J3010; Q9966

== ENCOUNTER → 2021-01-29 | Outpatient (CLI) | payer OTHER ==
--- NOTE | 2021-01-29 07:56 | P.PN ---
Subjective Progress Note Date: 01/29/21 This is a follow-up visit for this 45 years old female with a chronic history of severe neck pain with radiation to the left upper extremity, is diagnosed with cervical foraminal stenosis and cervical radiculopathy, cervical degenerative disc disease, previously we had done a cervical epidural steroid injection 1 patient reported that she get 100% relief of her symptoms, the relief lasted for more than 2 weeks, she is complaining of severe neck pain with radiation to the upper extremity bilaterally associated with numbness and tingling sensation, denies any fever or night sweats she denies any motor or sensory deficit Objective - Vital Signs Vital signs: Intake & Output 01/28/21 01/29/21 01/29/21 18:59 06:59 18:59 Weight 58.06 kg - Exam Physical Examinations : -Constitutiona : Cooperative , not in acute distress . -HEENT : nech : supple , no Lymphadenopathy , normal thyroid size . : eyes : no ptosis , no icterus, no photophobia . - neurologic : Cranial nerve II to XII intact , no focal neurological deffecit . -psychatric : alert , oriented X 3 , appropriate affect , intact judgment and insight . -Lymphatic : no Lymphadenopathy . - musculoskeltal : Cervical Spine motor stregnth in the deltoid and biceps, normal right side , normal Left side motor stregnth biceps and the wrist extensors normal right side ,normal left side . motor stregnth in the triceps muscle . normal Right side , normal Left side deep tendon reflexes normal at the biceps , normal at Brachioradialis , normal at triceps. cervical facet loading test: Positive Bilaterally Spurling test= positive Right , positive left. Neck distraction test= positive Right , positive left. Rosalino sign= positive right, positive left . Lumber spine moter stegnth lower extremities ,thigh and legs 5/5 Right side , 5/5 Left side Assessment and Plan Plan: Assessment and plan=1-cervical degenerative disc disease. 2-cervical radiculopathy. 3-cervical foraminal stenosis. 4-cervical spondylosis. Patient failed physical therapy, She could benefit from cervical epidural steroid injection at C7-T1. - PQRS measures = - Patient's medications are documented in the chart. -Tobacco use is negative and counseling.Given. -Patient's has not received pneumococcal vaccine. -Advanced care planning discussed, patient not eligible. -Opiate contract not signed. -Pain positive and follow-up visit/procedure is scheduled. -Patient's blood pressure measured [ 125/86 ] , and documented in the record ,and patient will follow up with the primary care. -Patient's weight was measured and body mass index [ ] above the normal limits and counseling was done. and patient instructed to follow-up with the primary care physician. -Patient was not identified as an unhealthy alcohol user Time with Patient: Less than 30
[2021-01-29 08:04] VITALS: BP 125/86; PULSE 96; RESP 18; TEMP 98.4
== END ==
LOC: PNWHC3 07:22
PROVIDERS: ATTEND Specialist
DX: M47.22 Other spondylosis with radiculopathy, cervical region (principal); M50.10 Cervical disc disorder with radiculopathy, unspecified cervical region; M48.02 Spinal stenosis, cervical region; Z91.040 Latex allergy status; Z88.2 Allergy status to sulfonamides; Z91.09 Other allergy status, other than to drugs and biological substances; Z87.891 Personal history of nicotine dependence
CPT/HCPCS: 99211

== ENCOUNTER → 2021-02-19 | Outpatient (CLI) | payer OTHER ==
--- NOTE | 2021-02-19 19:28 | US ---
EXAMINATION TYPE: US thyroid st tissue head/neck DATE OF EXAM: 02/19/2021 COMPARISON: CT dated 12/05/2020 & US CLINICAL HISTORY: R22.1 SWELLING, MASS, LUMP IN NECK. Pt states palpable lump left posterior/lateral neck Bilateral lateral neck scanned- all normal appearing lymph nodes bilateral lateral necks- there was n o abnormality visualized left posterior lateral neck in area of pt's concern/ there did appear to be a lymph node anterior to right carotid= 2.1 x 0.6 cm, and AP measurement of 0.6 cm- this was not at p t's area of concern IMPRESSION: Limited scan. No abnormality evident to account for patient's symptoms.
== END | disposition home or self-care (01) ==
LOC: RADUSWWP 16:16
PROVIDERS: ATTEND Otolaryngology
DX: R22.1 Localized swelling, mass and lump, neck (principal)
CPT/HCPCS: 76536

== ENCOUNTER 2021-03-01 06:30 | Day surgery (SDC) | payer OTHER ==
[2021-02-26 14:47] VITALS: BMI 27.0
[2021-03-01 07:09] VITALS: TEMP 97.5
[2021-03-01] MEDS ORDERED: LACTATED RINGERS 1,000 ML IV ONE (07:15)
[2021-03-01] MEDS ORDERED: LACTATED RINGERS 1,000 ML IV SCH (07:30)
[2021-03-01] MEDS ORDERED: fentaNYL (PF) 50 MCG/ML 2 ML AMP ONE (07:36)
[2021-03-01] MEDS ORDERED: MIDAZOLAM 2 MG/2 ML VIAL ONE (07:36)
[2021-03-01] MEDS ORDERED: DEXAMETHASONE SOD PHOSPHATE 10 MG/ML 1 ML VIAL ONE (07:36)
[2021-03-01] MEDS ORDERED: IOPAMIDOL M200 10 ML VIAL ONE (07:36)
--- NOTE | 2021-03-01 07:44 | P.PCN ---
Date of Procedure: 03/01/21 Description of Procedure: Pre- and Post-operative Diagnosis: Cervical radiculopathy Procedure: C7-T1 Inter-Laminar Cervical Epidural Steroid Injection under biplanar fluoroscopy #2 Surgeon: Ashley Zhu Anesthesia: Local: 1% Lidocaine, IV sedation : Versed, and fentanyl. Complications: None. Estimated blood loss: None Specimens removed: None Fluoroscopic image: saved to electronic medical records. Indications for Procedure: The patient has been suffering from neck pain and pain radiating to the upper extremity . Patient had 100% pain relief with the previous epidural steroid injection more than 2 weeks duration , which helped pain radiating to upper extremities. Inadequate pain control with pharmacologic regimen. Repeat inter-laminar approach cervical epidural steroid injection was scheduled for the patient. Procedure and Findings: The patient was seen and examined in the holding area. The written informed consent was obtained after explaining the risks, benefits, alternatives of the procedure to the patient. The patient was brought to the procedure room and was placed in the prone position on the operating table. A pillow was placed under the upper chest. Standard anesthesia monitoring was done through out the procedure. Timeout was completed. The skin preparation was done with ChloraPrep 1 and draping was done in usual sterile fashion. Sterile technique was observed throughout the procedure. Under fluoroscopic guidance, the C7-T1 inter-laminar space was identified. 3 ml of 1% Lidocaine was injected with a 25 gauge needle to achieve adequate local anesthesia of the skin and subcutaneous tissue. A 20 gauge, 3.5 inch Tuohy type epidural needle was placed and gradually advanced up to the epidural space using loss of resistance technique and fluoroscopic guidance. Lateral, oblique fluoroscopic views confirm the needle position. No paresthesia was noted. A negative aspiration was confirmed and then 1 ml of Isovue-200 was injected. A good dye spread was seen in the epidural space and it was negative for any intrathecal, intraneural or intravascular spread. A total of 6 ml solution containing 20 mg Dexamethasone, and 4 ml preservative-free Normal Saline was injected slowly with intermittent aspiration. The needle was removed intact, area was cleaned and bandage was applied. Disposition : The patient tolerated the procedure very well. The patient was transferred to the recovery room and remained stable until discharged home. The patient was given detailed discharge instructions for bleeding, infection, increased pain at the injection site, and was advised to seek immediate medical attention should significant side effects develop. The patient will be followed up with our [facility] within 4 weeks for follow-up visit.
[2021-03-01 07:53] VITALS: RESP 14
--- NOTE | 2021-03-01 08:08 | FL ---
Fluoroscopy History: Cervical epidural injection 6sec fluoro time
[2021-03-01 08:12] VITALS: BP 122/72; PULSE 83
== END 2021-03-01 08:20 | disposition home or self-care (01) ==
LOC: ORPAIN 06:30
DX: M54.12 Radiculopathy, cervical region (principal); I10 Essential (primary) hypertension; Z98.51 Tubal ligation status; Z98.890 Other specified postprocedural states; Z88.2 Allergy status to sulfonamides; Z88.1 Allergy status to other antibiotic agents; Z91.040 Latex allergy status
CPT/HCPCS: 81025; 62321; J2250; J1100; J3010; Q9966

== ENCOUNTER → 2021-07-06 | Outpatient (CLI) | payer OTHER ==
--- NOTE | 2021-07-06 13:02 | US ---
EXAMINATION TYPE: US thyroid st tissue head/neck DATE OF EXAM: 07/06/2021 COMPARISON: US & CT CLINICAL HISTORY: R59.0 LOCALIZED ENLARGED LYMPH NODES. Pt states pain and palpable lumps "all over" bilateral neck Bilateral neck scanned, Multiple lymph nodes, largest AP measurement on right= 0.6 cm, largest AP karely surement on left= 0.8 cm/ quick image of thyroid showed no abnormality IMPRESSION: Multiple normal appearing lymph nodes identified.
== END | disposition home or self-care (01) ==
LOC: RADUSWWP 12:16
PROVIDERS: ATTEND Otolaryngology
DX: R59.0 Localized enlarged lymph nodes (principal)
CPT/HCPCS: 76536

== ENCOUNTER 2021-10-30 06:25 | Day surgery (SDC) | payer BC, OTHER ==
[2021-10-29 10:20] VITALS: BMI 26.2
[~2021-10-30 06:25] MED LIST changes: -CLINDAMYCIN 900 MG in DEXTROSE 5% IN WATER 50 ML IVPB ONE; -DEXAMETHASONE SOD PHOSPHATE 10 MG/ML 1 ML VIAL IV ONE; -GENTAMICIN 280 MG in SODIUM CHLORIDE 0.9% 100 ML IVPB ONE; -MIDAZOLAM 2 MG/2 ML VIAL IV PRN; -ONDANSETRON 4 MG/2 ML VIAL IVP ONE; -SCOPOLAMINE 1.5MG/72HR PATCH TRANSDERM ONE; -ceFAZolin IN SWFI 2 GM/20 ML SYRINGE IVP ONE
[2021-10-30 07:04] VITALS: TEMP 97.4
[2021-10-30] MEDS ORDERED: PROPOFOL 10 MG/ML 20 ML VIAL IV ONE (07:28)
[2021-10-30] MEDS ORDERED: fentaNYL (PF) 50 MCG/ML 2 ML AMP ONE (07:28)
[2021-10-30] MEDS ORDERED: MIDAZOLAM 2 MG/2 ML VIAL ONE (07:28)
--- NOTE | 2021-10-30 07:52 | P.PCN ---
Date of Procedure: 10/30/21 Procedure(s) Performed: Brief history: Patient is a pleasant 46-year-old white female scheduled for an elective upper endoscopy as well as colonoscopy as a part of evaluation of long-standing history of heartburn and GERD and intermittent dysphagia to solids as well as screening for colon cancer Procedure performed: Esophagogastroduodenoscopy with biopsy Colonoscopy Preoperative diagnosis: GERD/dysphagia to solids Screening for colon cancer Anesthesia: MAC Procedure: After informed consent was obtained from the patient was brought into the endoscopy unit and IV sedation was administered by anesthesia under continuous monitoring. Initially upper endoscopy was done. The Olympus GF 160 video en doscope was inserted inserted into the mouth and esophagus intubated without any difficulty and was gradually advanced into the stomach and duodenum and carefully examined. The bulb and second part of the duodenum appeared normal. The scope was then withdrawn into the stomach adequately insufflated with air and upon careful examination the antrum had diffuse gastritis and biopsies were done from this area. There are multiple gastric polyps noted in the gastric body which were biopsied. Mucosa of the body, cardia and fundus appeared normal. The scope was then withdrawn into the esophagus. The GE junction was located at 40 cm to the incisors. It appeared regular with no erythema erosions or ulcerations. Rest of the esophagus appeared normal. Patient tolerated the procedure well. At this time the patient continued to remain sedation. Initial digital rectal examination was normal. Olympus CF 160 video colonoscope was then inserted into the rectum and gradually advanced to the cecum without any difficulty. Careful examination was performed as the scope was gradually being withdrawn. The prep was excellent. The cecum, ascending colon, transverse colon, descending colon, sigmoid colon and rectum appeared normal. Retroflexion was performed in the rectum and no lesions were noted. Patient tolerated the procedure well. Impression: 1. Upper endoscopy revealed mild diffuse gastritis and gastric polyps but no evidence of esophagitis or Mckoy's esophagus 2. Colonoscopy was within normal limits with no evidence of colorectal neoplasia Recommendations: Findings of this examination were discussed with the patient as well as her family. She was advised to continue with Nexium 5 mg daily and famotidine 20 mg twice daily. Follow antireflux measures and diet modification. Recommended repeat screening colonoscopy in 10 years.
[2021-10-30 07:58] VITALS: RESP 14
[2021-10-30 08:12] VITALS: BP 133/86; PULSE 71
== END 2021-10-30 08:20 | disposition home or self-care (01) ==
LOC: ORWHC2ENDO 06:25
PROVIDERS: ATTEND Internal Medicine Gastroenterology
DX: Z12.11 Encounter for screening for malignant neoplasm of colon (principal); K21.9 Gastro-esophageal reflux disease without esophagitis; K29.50 Unspecified chronic gastritis without bleeding; K31.7 Polyp of stomach and duodenum; R13.19 Other dysphagia; R12 Heartburn; I10 Essential (primary) hypertension; Z88.2 Allergy status to sulfonamides; Z91.040 Latex allergy status; Z98.82 Breast implant status; Z98.891 History of uterine scar from previous surgery; Z98.51 Tubal ligation status
CPT/HCPCS: 81025; 45378; 43239; J2250; J3010; J2704; 88305; 88342

== ENCOUNTER → 2023-02-21 | Outpatient (CLI) | payer BC ==
--- NOTE | 2023-02-26 11:53 | MM ---
Reason for Exam: Screening (asymptomatic). Last mammogram was performed 3 year(s) and 3 month(s) ago. Patient History: Menarche at age 10. First Full-Term at age 15. Patient used Hormonal Contraceptives for 15 years. 2009, Bilateral Implants. Risk Values: Harmony 5 year model risk: 0.7%. NCI Lifetime model risk: 6.6%. Prior Study Comparison: 08/21/2018 Bilateral Screening Mammogram, [facility]. 11/22/2019 Bilateral Diagnostic Mammogram, [facility]. 11/10/2020 Left Diagnostic Mammogram, [facility]. Tissue Density: The breast tissue is heterogeneously dense. This may lower the sensitivity of mammography. Findings: Analyzed By CAD. Bilateral breast implants. There is no suspicious group of microcalcifications or new suspicious mass. Overall Assessment: Benign, BI-RAD 2 Management: Screening Mammogram of both breasts in [address] [facility] will attempt to contact patient to return for supplemental views and ultrasound if indicated. Patient should continue monthly self-breast exams. A clinical breast exam by your physician is recommended on an annual basis. This exam should not preclude additional follow-up of suspicious palpable abnormalities. Note on Harmony scores and lifetime risk: 1. A Harmony score greater than 3% is considered moderate risk. If this is the case, consider specialist referral to assess eligibility for a risk reducing agent. 2. If overall lifetime risk for the development of breast cancer is 20% or higher, the patient may qualify for future screening with alternating mammogram and breast MRI. Electronically signed and approved by: Pasquale Reid DO
== END | disposition home or self-care (01) ==
LOC: RADMAMWWP 13:29
PROVIDERS: ATTEND Obstetrics & Gynecology Obstetrics
DX: Z12.31 Encounter for screening mammogram for malignant neoplasm of breast (principal); Z98.82 Breast implant status
CPT/HCPCS: 77067

== ENCOUNTER → 2024-02-23 | Outpatient (CLI) | payer BC ==
--- NOTE | 2024-02-26 12:55 | MM ---
Reason for Exam: Screening (asymptomatic). Last screening mammogram was performed 12 month(s) ago. Patient History: Menarche at age 10. First Full-Term at age 15. Postmenopausal. Patient used Hormonal Contraceptives for 15 years. 2021, Bilateral Implants. 2009, Bilateral Implants. Risk Values: Harmony 5 year model risk: 0.7%. NCI Lifetime model risk: 6.5%. Prior Study Comparison: 11/22/2019 Bilateral Diagnostic Mammogram, [facility]. 11/10/2020 Left Diagnostic Mammogram, [facility]. 02/21/2023 Bilateral MG screening mammo implant/CAD, [facility]. Tissue Density: The breasts are heterogeneously dense, which may obscure small masses. Findings: Analyzed By CAD. Redemonstrated bilateral retropectoral saline implants. There is no suspicious group of microcalcifications or new suspicious mass in either breast. Overall Assessment: Benign, BI-RAD 2 Management: Screening Mammogram of both breasts in 1 year. Patient should continue monthly self-breast exams. A clinical breast exam by your physician is recommended on an annual basis. This exam should not preclude additional follow-up of suspicious palpable abnormalities. Note on Harmony scores and lifetime risk: 1. A Harmony score greater than 3% is considered moderate risk. If this is the case, consider specialist referral to assess eligibility for a risk reducing agent. 2. If overall lifetime risk for the development of breast cancer is 20% or higher, the patient may qualify for future screening with alternating mammogram and breast MRI. [facility], , 02/26/2024 12:52 PM. Electronically signed and approved by: Maciel Fernandez M.D. Radiologist
== END | disposition home or self-care (01) ==
LOC: RADMAMWWP 13:54
PROVIDERS: ATTEND Family Medicine
DX: Z12.31 Encounter for screening mammogram for malignant neoplasm of breast (principal); Z78.0 Asymptomatic menopausal state; Z98.82 Breast implant status; R92.333 Mammographic heterogeneous density, bilateral breasts
CPT/HCPCS: 77067

== ENCOUNTER → 2024-05-06 | Outpatient (CLI) | payer BC ==
--- NOTE | 2024-05-07 09:59 | CA ---
Transthoracic Echo Report Name: Lynn Gamez Age: 49 Gender: F : 1975 Exam Date: 05/06/2024 16:17 Exam Location: [facility] Ht (in): 59 Wt (lb): 125 Ordering Physician: Enmanuel Packer MD Attending/Referring Phys: Ocho[employer] Mary Vázquez RDCS Procedure CPT: Indications: I51.7 Cardiomegaly Cardiac Hx: Technical Quality: Fair Contrast 1: Total Dose (mL): Contrast 2: Total Dose (mL): MEASUREMENTS (Male / Female) Normal Values 2D ECHO LV Diastolic Diameter PLAX 3.9 cm 4.2 - 5.9 / 3.9 - 5.3 cm LV Systolic Diameter PLAX 2.4 cm IVS Diastolic Thickness 0.9 cm 0.6 - 1.0 / 0.6 - 0.9 cm LVPW Diastolic Thickness 0.9 cm 0.6 - 1.0 / 0.6 - 0.9 cm LV Relative Wall Thickness 0.4 LVOT Diameter 1.8 cm LV Diastolic Volume MOD BP 70.5 cm??? 67 - 155 / 56 - 104 cm??? LV Systolic Volume MOD BP 29.7 cm??? 22 - 58 / 19 - 49 cm??? LV Ejection Fraction MOD BP 58.0 % >= 55 % LV Cardiac Index MOD BP 1819.4 cm???/min???m??? LV Diastolic Volume MOD 4C 74.5 cm??? LV Systolic Volume MOD 4C 30.9 cm??? LV Ejection Fraction MOD 4C 58.5 % LV Cardiac Index MOD 4C 1940.1 cm???/min???m??? LV Diastolic Length 4C 6.9 cm LV Systolic Length 4C 5.9 cm LV Diastolic Volume MOD 2C 65.2 cm??? LV Systolic Volume MOD 2C 27.8 cm??? LV Ejection Fraction MOD 2C 57.4 % LV Cardiac Index MOD 2C 1665.8 cm???/min???m??? LV Diastolic Length 2C 7.1 cm LV Systolic Length 2C 5.7 cm LA Volume 20.0 cm??? 18 - 58 / 22 - 52 cm??? LA Volume Index 12.9 cm???/m??? 16 - 28 cm???/m??? DOPPLER AV Peak Velocity 126.0 cm/s AV Peak Gradient 6.3 mmHg AV Mean Velocity 80.4 cm/s AV Mean Gradient 3.0 mmHg AV Velocity Time Integral 22.5 cm LVOT Peak Velocity 101.7 cm/s LVOT Peak Gradient 4.1 mmHg LVOT Velocity Time Integral 19.5 cm LVOT Stroke Volume 52.2 cm??? LVOT Stroke Volume Index 34.6 ml/m??? LVOT Cardiac Index 2324.6 cm???/min???m??? AV Area Cont Eq vti 2.3 cm??? AV Area Cont Eq pk 2.2 cm??? MV Area PHT 4.5 cm??? Mitral E Point Velocity 61.0 cm/s Mitral A Point Velocity 69.1 cm/s Mitral E to A Ratio 0.9 MV Deceleration Time 169.9 ms TR Peak Velocity 224.4 cm/s TR Peak Gradient 20.1 mmHg Right Atrial Pressure 5.0 mmHg Pulmonary Artery Systolic Pressu 25.1 mmHg Right Ventricular Systolic Press 25.1 mmHg PV Peak Velocity 89.7 cm/s PV Peak Gradient 3.2 mmHg FINDINGS Left Ventricle Left ventricular ejection fraction is estimated at 55-60 %. Left ventricular cavity size normal. Left ventricular wall thickness normal. No obvious regional wall motion abnormalities. Right Ventricle Normal right ventricular size and function. Right ventricular systolic pressure within normal limits. Right Atrium Normal right atrial size. Left Atrium Normal left atrial size. Mitral Valve Structurally normal mitral valve. No evidence for mitral valve prolapse. No mitral stenosis. Trace mitral regurgitation. Aortic Valve Trileaflet aortic valve. No aortic valve stenosis or regurgitation. Tricuspid Valve Structurally normal tricuspid valve. No tricuspid stenosis. Mild tricuspid regurgitation. Pulmonic Valve Structurally normal pulmonic valve. No pulmonic stenosis. No pulmonic regurgitation. Pericardium No pericardial effusion. Aorta Normal size aortic root and proximal ascending aorta. CONCLUSIONS Diagnosis: Cardiomegaly Normal LV size and systolic function Normal RV size and function Previewed by: Dr. Bo Florentino MD (Electronically Signed) Final Date: 07 May 2024 09:58
== END | disposition home or self-care (01) ==
LOC: RADECHMAIN 16:10
PROVIDERS: ATTEND Family Medicine
DX: I51.7 Cardiomegaly (principal); I34.0 Nonrheumatic mitral (valve) insufficiency
CPT/HCPCS: 93306

== ENCOUNTER → 2024-05-25 | Outpatient (CLI) | payer BC ==
--- NOTE | 2024-05-25 15:58 | US ---
EXAMINATION TYPE: US thyroid st tissue head/neck DATE OF EXAM: 05/25/2024 COMPARISON: US(07/06/2021) CLINICAL INDICATION: Female, 49 years old with history of R22.1 LOCALIZED SWELLING, MASS AND LUMP, NE CK; pt is feeling tenderness in both sides of neck, pt had recent sx on neck for excess fat removal a nd is feeling swollen since TECHNIQUE: Multiple grayscale and color Doppler ultrasound images of the bilateral neck and mid neck were obtained. FINDINGS: Bilateral neck scanned pt area of palp Rt Neck AOC: Multiple lymph nodes seen: Largest two: 1. 0.8x1.0x0.6cm 2. 0.9x1.4x0.2cm Mid neck AOC: Left seen: 0.8x1.0x0.6cm Lt neck AOC: Multiple Lymph nodes seen: Largest: 1. 0.7x1.0x0.5cm 2. 0.5x1.6x0.5cm These lymph nodes demonstrate normal central fatty hilum. No organized fluid collection identified. IMPRESSION: Multiple benign-appearing prominent lymph nodes throughout the neck. No organized fluid collection identified. [facility], , 05/25/2024 3:56 PM
== END | disposition home or self-care (01) ==
LOC: RADUSWWP 15:17
PROVIDERS: ATTEND Family Medicine
DX: R22.1 Localized swelling, mass and lump, neck (principal)
CPT/HCPCS: 76536